=== PATIENT | male | born 1970 | race Two or more races ===

== ENCOUNTER 2018-08-31 10:08 | Emergency (ER) | payer OTHER ==
[~2018-08-31] VITALS: Ht 182.9 cm; Wt 126.0 kg
[2018-08-31 12:51] VITALS: BP 139/77
== END 2018-08-31 12:58 | disposition home or self-care (01) ==
LOC: ER 10:08
DX: F45.8 Other somatoform disorders (principal); R03.0 Elevated blood-pressure reading, without diagnosis of hypertension; F12.90 Cannabis use, unspecified, uncomplicated
CPT/HCPCS: 99281